=== PATIENT | female | born 1980 | race Caucasian/White ===

== ENCOUNTER 2017-10-21 20:08 | Emergency (ER) | payer OTHER ==
[2017-10-21 20:30] VITALS: BP 110/72
--- NOTE | 2017-10-21 20:39 | EDM.PDOC ---
ED HPI GENERAL MEDICAL PROBLEM - General Chief Complaint: Respiratory Problem Stated Complaint: SOB LEG PAINS Time Seen by Provider: 10/21/17 20:39 Source of Information: Reports: Patient History Limitations: Reports: No Limitations - History of Present Illness INITIAL COMMENTS - FREE TEXT/NARRATIVE: 29-year-old female presents the ED with sudden onset of shortness of breath this evening. She does have a history of asthma and she felt it was mild asthma attack as she didn't have any wheezing. She does did not use her albuterol inhaler. Denies cough or sputum production denies fever or chills. She states she's been prone to recurrent superficial thrombophlebitis over the last 18-20 years. Symptoms started after toxemia in . She is on her feet 10-12 hrs per day and over the last week has had increased pain in the medial aspect of her right calf. She felt with the use of aspirin vitamin D and heating pad applications as well as Epsom salts soaks in the bathtub that the pain in her right leg was gradually improving over the last few days. Was perhaps worsened yesterday after being on her feet for a prolonged period of time. This evening she developed increased shortness of breath that came on suddenly and she is worried that she may have had a PE. She has no history of pulmonary embolism disease and no history of true deep venous thrombosis. Ears at all of her problems have been primarily superficial phlebitis. Note O2 sats are 100% at this time and respiratory disease 18 she does not appear to be in any respiratory distress. On questioning she reports that her dyspnea this time seems to be somewhat better. Onset: Today Onset Date: 10/21/17 Onset Time: 19:30 Duration: Minutes: Location: Reports: Chest (Sudden onset of shortness of breath.), Lower Extremity , Right (Right medial calf pain for the better part of a week.) Quality: Reports: Ache (In her right medial leg.), Other (Chest symptoms were that of shortness of breath dyspnea like asthma tach. Of note she does have asthma and uses an inhaler intermittently.) Severity: Moderate Improves with: Reports: None Worsens with: Reports: None Context: Denies: Activity, Exercise, Lifting, Sick Contact, Trauma, Other Associated Symptoms: Denies: Confusion, Chest Pain, Cough, cough w sputum, Diaphoresis, Fever/Chills, Headaches, Loss of Appetite, Malaise, Nausea/Vomiting , Rash, Seizure, Shortness of Breath, Syncope Treatments BLUEPRINT BLOCKER: Reports: Aspirin, Other Medication(s), Other (see below) Other Treatments BLUEPRINT BLOCKER: heat therapy and Vitamin D - Related Data Allergies Allergy/AdvReac Type Severity Reaction Status Date / Time codeine Allergy Headache Verified 10/21/17 20:30 morphine Allergy Headache Verified 10/21/17 20:30 Penicillins Allergy Difficulty Verified 10/21/17 20:30 Breathing Sulfa (Sulfonamide Allergy Hallucinati Verified 10/21/17 20:30 Antibiotics) ons Home Meds: Home Meds Spironolactone 50 mg PO DAILY 04/24/15 [History] Topiramate 100 mg PO BID 04/24/15 [History] Past Medical History Genitourinary History: Reports: Renal Calculus FREIGHT BROKER History: Reports: Endocrine/Metabolic History: Reports: Other (See Below) Other Endocrine/Metabolic History: pituitary tumor - Past Surgical History Female Surgical History: Reports: Section Social & Family History - Tobacco Use Smoking Status *Q: Never Smoker Second Hand Smoke Exposure: No - Caffeine Use Caffeine Use: Reports: Soda - Alcohol Use Days Per Week of Alcohol Use: 0 - Recreational Drug Use Recreational Drug Use: No - Living Situation & Occupation Occupation: Employed ED ROS GENERAL - Review of Systems Review Of Systems: See Below Constitutional: Denies: Fever, Chills, Malaise, Weakness, Night Sweats, Diaphoresis, Decreased Appetite, Weight Loss HEENT: Reports: No Symptoms Respiratory: Reports: Shortness of Breath. Denies: Wheezing, Pleuritic Chest Pain, Cough (See history present illness), Sputum, Hemoptysis Cardiovascular: Reports: No Symptoms Endocrine: Reports: No Symptoms GI/Abdominal: Reports: No Symptoms : Reports: No Symptoms Musculoskeletal: Reports: Leg Pain (Right medial calf pain for the better part of a week. She states she is prone to getting superficial phlebitis recurrently over the last 18 years. She's been using aspirin and vitamin D as well as heat packs to the area with improvement over the last for 5 days.) Skin: Reports: No Symptoms Neurological: Reports: No Symptoms Psychiatric: Reports: No Symptoms Hematologic/Lymphatic: Reports: No Symptoms Immunologic: Reports: No Symptoms ED EXAM, GENERAL - Physical Exam Exam: See Below Exam Limited By: No Limitations General Appearance: Alert, WD/WN, No Apparent Distress, Other (Note normal vital signs.) Respiratory/Chest: No Respiratory Distress, Lungs Clear, Normal Breath Sounds, No Accessory Muscle Use, Chest Non-Tender, Respiratory Distress Cardiovascular: Normal Peripheral Pulses, Regular Rate, Rhythm, No Edema, No Gallop, No Murmur Peripheral Pulses: 2+: Posterior Tibial (L), Posterior Tibial (R), Dorsalis Pedis (L), Dorsalis Pedis (R) GI/Abdominal: Normal Bowel Sounds, Soft, Non-Tender, No Organomegaly Extremities: Other (Patient does has some tenderness along the distribution of the greater saphenous vein right calf. There is no superficial erythema only tenderness in the distribution of the pain with some nodularity palpable below the knee proximal tib-fib. There is no edema of the right lower extremity. Good pulses are present. No pain in the greater saphenous vein above the knee up to the groin.) Skin Exam: Warm, Dry, Intact, Normal Color, No Rash Course - Vital Signs Last Recorded V/S: Last Vital Signs Temp 36.6 C 10/21/17 20:17 Pulse 83 10/21/17 20:17 Resp 13 10/21/17 20:17 BP 110/72 10/21/17 20:17 Pulse Ox 100 10/21/17 20:59 - Orders/Labs/Meds Orders: Active Orders 24 hr Category Date Time Status RT Aerosol Therapy [RC] ASDIRECTED Care 10/21/17 20:47 Active Chest 1V Frontal [CR] Stat Exams 10/21/17 21:22 Taken Labs: Laboratory Tests 10/21/17 10/21/17 10/21/17 Range/Units 20:40 20:40 20:40 WBC 10.06 H (3.98-10.04) K/mm3 RBC 4.92 (3.98-5.22) M/mm3 Hgb 14.5 (11.2-15.7) gm/L Hct 42.1 (34.1-44.9) % MCV 85.6 (79.4-94.8) fl MCH 29.5 (25.6-32.2) pg MCHC 34.4 (32.2-35.5) g/dl RDW Std Deviation 43.0 (36.4-46.3) fL Plt Count 409 H (182-369) K/mm3 MPV 10.9 (9.4-12.3) fl Neutrophils % (Manual) 59 (40-60) % Band Neutrophils % 0 (0-10) % Lymphocytes % (Manual) 29 (20-40) % Atypical Lymphs % 2 % Monocytes % (Manual) 6 (2-10) % Eosinophils % (Manual) 3 (0.7-5.8) % Basophils % (Manual) 0 L (0.1-1.2) Myelocytes % 1 Platelet Estimate Increased Plt Morphology Comment See note RBC Morph Comment Normal D-Dimer, Quantitative < 0.19 L (0.19-0.59) mg/L Sodium 142 (136-145) mEq/L Potassium 4.1 (3.5-5.1) mEq/L Chloride 108 H (98-107) mEq/L Carbon Dioxide 25 (21-32) mEq/L Anion Gap 13.1 (5-15) BUN 7 (7-18) mg/dL Creatinine 1.0 (0.55-1.02) mg/dL Est Cr Clr Drug Dosing 60.33 mL/min Estimated GFR (MDRD) > 60 (>60) mL/min BUN/Creatinine Ratio 7.0 L (14-18) Glucose 153 H (74-106) mg/dL Calcium 8.5 (8.5-10.1) mg/dL Total Bilirubin 0.4 (0.2-1.0) mg/dL AST 13 L (15-37) U/L ALT 23 (14-59) U/L Alkaline Phosphatase 75 (46-116) U/L C-Reactive Protein < 0.2 (<1.0) mg/dL Total Protein 6.9 (6.4-8.2) g/dl Albumin 3.6 (3.4-5.0) g/dl Globulin 3.3 gm/dL Albumin/Globulin Ratio 1.1 (1-2) Meds: Medications Discontinued Medications Generic Name Dose Route Start Last Admin Trade Name Freq PRN Reason Stop Dose Admin Albuterol/Ipratropium 3 ml 10/21/17 20:47 10/21/17 20:59 Duoneb 3.0-0.5 Mg/3 Ml NEB 10/21/17 20:48 3 ml ONETIME ONE Administration - Radiology Interpretation Free Text/Narrative:: 37-year-old female presents the ED with acute onset of dyspnea tonight which she states came on abruptly. She said felt mildly like and has been tach but she had no wheezing. She did not use her inhaler tonight. She uses it intermittently for asthma for many years. She has had right medial calf pain for the better part of a week and was concerned that she may have developed a pulmonary embolism. She reports recurrent bouts of superficial thrombus phlebitis over the last 18 years involving both legs. She's been using aspirin daily and vitamin D orally. She's been soaking in hot water and Epsom salts as well as heat packs to the right medial calf with improvement over the last 3-4 days. 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 At present she does not appear to be in any respiratory distress lungs are clear vital signs are normal including a O2 sat of 100% on room air respiratory rate of 13. Her leg swells evidence of a superficial phlebitis which appears to be minimal at this time. Clinically I do not think she has a DVT or PE. I will have a d-dimer CBC and CMP ordered as well as CRP. One view chest x-ray will be obtained. Duonebx 1 to be given to see if it helps ease her dyspnea. - Re-Assessments/Exams Free Text/Narrative Re-Assessment/Exam: 10/21/17 21:45 Labs reveal a white count of 10.06 with a normal differential. Hemoglobin is 14.5 with hematocrit of 42.1. Plan account for her 9000. D-dimer is less than 0.19. Chemistry is normal other than a mildly elevated serum chloride 108. Chest x-ray portable is within normal limits. 10/21/17 21:49 on examination she is feeling improved. Reassured that there is no evidence of DVT or pulmonary embolism based on the normal d-dimer. She didn' t think to use her albuterol inhaler but advised to do so she develops further problems with bronchospasm. She does have a mild resolving superficial thrombophlebitis right leg and she is currently using the right medications. Given to excuse her from the workplace tomorrow so that she can stay off of her leg a little bit longer to allow this to settle down. Eyes Motrin 600 mg every [address] of aspirin as it may be more effectual in reducing the inflammation and pain. Departure - Departure Time of Disposition: 21:51 Disposition: Home, Self-Care 01 Condition: Fair Clinical Impression: Acute dyspnea Superficial thrombophlebitis Qualifiers: Superficial thrombophlebitis-Involved body area: lower extremity Laterality: right Qualified Code(s): I80.01 - Phlebitis and thrombophlebitis of superficial vessels of right lower extremity - Discharge Information Instructions: Shortness of Breath, [id number] Referrals: Dafne Brown, [facility] [Primary Care Provider] - Forms: ED Department Discharge, ED Return to Work/School Form Additional Instructions: Evaluation in the emergency him tonight in regards to sudden onset of shortness of breath. Seem to be like you're normal asthma attack. Associated right medial calf pain for the last week characteristic of superficial thrombus phlebitis on examination. Workup was therefore carried out to rule out any significant blood clots in the system or clots that could get up into the lung the tests proved to be normal or negative for any pulmonary mils of more venous thrombosis. I suspect shortness of breath was caused by mild bronchospasm or mild asthma attack. Suggest use of albuterol inhaler like you have at home 2 puffs every 4 hours if needed for similar type symptoms. Continue current treatment for your phlebitis but I would suspect it to Motrin 600 mg every 6 hours to relieve pain and inflammation in the calf vein. Aspirin only last about 4 hours continue elevation and heat packs until improved. The only to prevent similar problems would be to work some form of Hernan compression stockings which would be available through [email or web address]. These would be used while at work often will prevent recurrent recurrence of phlebitis issues when you have to stand for prolonged periods of time or sit for prolonged periods of time. - My Orders Last 24 Hours: My Active Orders 10/21/17 20:47 RT Aerosol Therapy [RC] ASDIRECTED 10/21/17 21:22 Chest 1V Frontal [CR] Stat - Assessment/Plan Last 24 Hours: My Active Orders 10/21/17 20:47 RT Aerosol Therapy [RC] ASDIRECTED 10/21/17 21:22 Chest 1V Frontal [CR] Stat
[2017-10-21] MEDS ORDERED: Albuterol/Ipratropium 3.0-0.5 MG/3 ML Neb Soln NEB ONE (20:47)
--- NOTE | 2017-10-23 11:40 | CR ---
Chest: Portable view of the chest was obtained. Comparison: No prior chest x-ray. Heart size and mediastinum are within normal limits. Lungs are clear. Minimal scoliosis is present within the spine. Impression: 1. Nothing acute is identified on portable chest x-ray. Diagnostic code #2
== END 2017-10-21 22:00 | disposition home or self-care (01) ==
LOC: JD.ED 20:08
DX: I80.01 Phlebitis and thrombophlebitis of superficial vessels of right lower extremity (principal); R06.00 Dyspnea, unspecified; Z88.5 Allergy status to narcotic agent; Z88.0 Allergy status to penicillin; Z88.2 Allergy status to sulfonamides
CPT/HCPCS: 36415; 71010; 71010-26; 80053; 85025; 85379; 86140; 94640; 99284; 99285-25